=== PATIENT | female | born 1945 | race Caucasian/White ===

== ENCOUNTER → 2016-08-23 | Day surgery (SDC) | payer MEDICARE, BC ==
[~2016-08-23] MED LIST: Dexamethasone 4 MG/ML SDV ONE; Lactated Ringers 1,000 ML IV SCH; Neostigmine Methylsulfate 1 MG/ML 5 ML Syringe ONE; Ondansetron 4 MG/2 ML SDV ONE; Propofol 200 MG/20 ML SDV ONE; Rocuronium 50 MG/5 ML Vial ONE; Succinylcholine/Normal Saline 200 MG/10 ML Syringe ONE; ceFAZolin 2 GM in Premix Bag 1 BAG IV ONE; fentaNYL 250 MCG/5 ML SDV ONE
[2016-08-23 07:44] VITALS: BP 141/78
== END ==
LOC: JP.SDS 07:12
PROVIDERS: ATTEND Orthopaedic Surgery
DX: Z53.9 Procedure and treatment not carried out, unspecified reason (principal); M48.06 Spinal stenosis, lumbar region; M41.9 Scoliosis, unspecified; Z79.899 Other long term (current) drug therapy; Z87.891 Personal history of nicotine dependence
CPT/HCPCS: 36415; J7120; J1100; J2405; J2704; J3010

== ENCOUNTER 2016-08-30 08:08 | Inpatient (IN) | payer MEDICARE, BC ==
[~2016-08-30 08:08] MED LIST changes: -Lactated Ringers 1,000 ML IV SCH; +Lactated Ringers 1,000 ML ONE; +Scopolamine 1.5 MG Transdermal Patch ONE; -ceFAZolin 2 GM in Premix Bag 1 BAG IV ONE
[2016-08-30] MEDS ORDERED: Povidone-Iodine 10% Soln 118.25 ML Bottle ONE (08:17)
[2016-08-30] MEDS ORDERED: Thrombin (Bovine) 5,000 Unit Kit ONE (08:17)
[2016-08-30] MEDS ORDERED: Bupivacaine 0.5%/EPINEPHrine 1:200,000 50 ML MDV ONE (08:17)
[2016-08-30] MEDS ORDERED: ceFAZolin 2 GM in Premix Bag 1 BAG IV ONE (08:50)
[2016-08-30] MEDS ORDERED: Lactated Ringers 1,000 ML IV SCH (09:15)
[2016-08-30] MEDS ORDERED: Albuterol/Ipratropium 3.0-0.5 MG/3 ML Neb Soln NEB ONE (09:30)
[2016-08-30] MEDS ORDERED: Meropenem 500 MG SDV ONE (09:44)
[2016-08-30] MEDS ORDERED: Naloxone 0.4 MG/ML SDV IVPUSH PRN (09:46)
[2016-08-30] MEDS ORDERED: HYDROmorphone/Normal Saline 15 MG/30 ML PCA IV PRN (09:46)
[2016-08-30] MEDS ORDERED: Linezolid 200 MG/100 ML Bag IRR ONE ×3 (10:40→13:44)
[2016-08-30] MEDS ORDERED: Rocuronium 50 MG/5 ML Vial ONE (11:06)
[2016-08-30] MEDS ORDERED: fentaNYL 250 MCG/5 ML SDV ONE ×2 (11:07→13:01)
[2016-08-30] MEDS ORDERED: Lactated Ringers 1,000 ML ONE (11:37)
[2016-08-30] MEDS ORDERED: ceFAZolin 1 GM Vial ONE (12:27)
[2016-08-30] MEDS ORDERED: Acetaminophen 1,000 MG in Premix Bag 1 BAG IV ONE (14:20)
[2016-08-30] MEDS ORDERED: Sodium Chloride 0.9% 10 ML Syringe FLUSH PRN ×2 (14:54→15:03)
[2016-08-30] MEDS ORDERED: Ondansetron 4 MG/2 ML SDV ONE (15:52)
[2016-08-30] MEDS ORDERED: Ondansetron 4 MG/2 ML SDV IV PRN (15:53)
[2016-08-30] MEDS: Dextrose 5%-Lactated Ringers 1,000 ML IV SCH ×2 (16:05→23:05)
[2016-08-30] MEDS: Pantoprazole 40 MG Vial IV SCH (17:21)
[2016-08-30] MEDS: ceFAZolin 2 GM in Sodium Chloride 0.9% 50 ML IV SCH (17:29)
[2016-08-30] MEDS ORDERED: Meperidine 300 MG/30 ML PCA Vial IV PRN (18:40)
[2016-08-30] MEDS ORDERED: Naloxone 0.4 MG/ML SDV IV PRN (18:40)
[2016-08-30] MEDS: Metoclopramide 10 MG/2 ML SDV IV SCH (18:40)
[2016-08-30] MEDS: Acetaminophen 1,000 MG in Premix Bag 1 BAG IV SCH (20:17)
[2016-08-30] MEDS: Docusate Sodium 100 MG Cap PO SCH (20:52)
[2016-08-30] MEDS: Amitriptyline 10 MG Tab PO SCH (20:52)
[2016-08-30] MEDS ORDERED: Lactated Ringers 500 ML IV ONE (22:45)
[2016-08-30] MEDS ORDERED: diphenhydrAMINE 50 MG/ML SDV IVPUSH PRN (23:49)
[2016-08-31] MEDS: Metoclopramide 10 MG/2 ML SDV IV SCH ×4 (00:51→17:34)
[2016-08-31] MEDS: ceFAZolin 2 GM in Sodium Chloride 0.9% 50 ML IV SCH ×3 (00:51→17:47)
[2016-08-31] MEDS: Acetaminophen 1,000 MG in Premix Bag 1 BAG IV SCH ×2 (01:52→09:51)
[2016-08-31] MEDS: Dextrose 5%-Lactated Ringers 1,000 ML IV SCH ×2 (05:39→13:34)
--- NOTE | 2016-08-31 08:11 | OR ---
DATE OF PROCEDURE: 08/30/2016 PREOPERATIVE DIAGNOSES: 1. Lumbar stenosis, L4-5 and L5-S1. 2. Lumbar scoliosis, L3-4, L4-5, and L5-S1. CO-SURGEON: Franco Garg M.D. [employer]OUNTAIN CLERK: KEIRA Barnett. ANESTHESIA: General endotracheal intubation. FLUID: Lactated Ringer solution. ESTIMATED BLOOD LOSS: Please see Dr. Garg's chart. COMPLICATIONS: None. SPECIMEN: None. DISCHARGE DISPOSITION: Stable to PACU. IMPLANTS: Signify allograft with globus implants 25 x 31, 15-degree 16 to 19 mm implant at L5-S1 and 25 x 31, 8-degree 12 to 15 mm implant at L4-5. HISTORY AND INDICATIONS FOR THE PROCEDURE: The patient was seen preoperatively in the clinic. She had previously undergone a lumbar laminectomy. She was doing considerably worse after the procedure and was continuing to do worse. She noticed that she had an increased deformity, where she nearly had a rib on hip deformity, and it was causing her a great deal of pain. She was also having left lower extremity radiculopathies, consistent with the L4 nerve distribution, as well as the L5 nerve distribution. Preoperative imaging confirmed the above-mentioned diagnosis, and it was evident from recon images for the CT that the wide facetectomy contributed to her instability on the left, causing an apex right scoliosis. Risks and benefits of the procedure were explained to the patient. Informed consent was obtained. DETAILS OF PROCEDURE: The patient was seen preoperatively by myself, and anesthesia staff in the preoperative holding area, where the operative site was marked. She was brought to the operative suite by the anesthesia staff, where general anesthesia was administered. Neuro monitoring leads were placed. These were normal throughout the entire case. The patient was then prepped and draped in a sterile manner. Please see Dr. Jamel Garg's notes for exposure for the case. After L5 was appropriately exposed, we then used Bovie electrocautery to define the edges of the vertebral bodies at L5 and S1 through the L5-S1 intervertebral space. I then used a #10 blade and cut as close as I could to the vertebral procedure bodies, and then using a very flat Brown, went along the edges of the vertebral bodies to remove as much of the disk en bloc as possible. After I removed this with pituitaries, I used straight angled, as well as ring curettes to remove any extra disk. I was able to visualize the posterior longitudinal ligament. After this had been done, I trialed from 11 mm up to 15 mm. I confirmed good position on lateral fluoroscopy with the sterilely draped fluoroscopy unit. I then removed this material and then inserted the implant that already had the bioactive crunch present in it. I confirmed good placement on lateral fluoroscopy and then used awl holes for the screws and then placed a 120 mm screw and two 25 mm screws. We then took AP and lateral views of this implant. Dr. Garg then was able to expose the L4-5 interspace. We did have not as much exposure on the right, but in this instance, this worked out well because we needed to increase our interbody height primarily at L4-5 on the left, due to the scoliotic defect secondary to the facetectomy posteriorly. The trials were then inserted again up to 12 and then after disk preparation in a similar manner as the L5-S1 interval and then inserted our final implant. Please note that I was able to expand both of these implants under direct fluoroscopy and then I placed my screws in the second implant. After looking at the AP and lateral fluoro images, I decided that as much of the scoliosis as needed to be corrected, had been corrected and decided not to do the L3-4 level, as I had previously planned. Please see Dr. Garg's note for closure. The patient was allowed to awaken from general anesthesia, and taken to the PACU in stable condition. Geoff Garg DO /[id number]
[2016-08-31] MEDS ORDERED: Docusate Sodium 100 MG Cap PO SCH (09:00)
[2016-08-31] MEDS: Acetaminophen/oxyCODONE 325-5 MG Tab PO PRN ×3 (09:52→22:50)
[2016-08-31] MEDS: Docusate Sodium 100 MG Cap PO SCH ×2 (09:55→20:47)
[2016-08-31] MEDS: Aspirin 81 MG Tab.EC PO SCH (09:56)
[2016-08-31] MEDS: Enoxaparin 40 MG/0.4 ML Syringe SUBCUT SCH (11:23)
--- NOTE | 2016-08-31 11:29 | CR ---
Lumbar Spine 2 or 3V INDICATION: post op FINDINGS: 5 lumbar type vertebral bodies. Mild lumbar curve convex left. Postoperative changes inter body spacers at L4-5 and L5-S1. Mild degenerative disc space narrowing at the L1, L2, and L3 intersp aces.
[2016-08-31] MEDS ORDERED: Benzocaine/Cetylpyridinium/Menthol Lozenge MUCMEM PRN (12:21)
[2016-08-31] MEDS: Pantoprazole 40 MG Vial IV SCH (17:34)
[2016-08-31] MEDS: Amitriptyline 10 MG Tab PO SCH (22:51)
--- NOTE | 2016-08-31 23:02 | PN ---
DATE OF SERVICE: 08/31/2016 SUBJECTIVE: Michelle is postop day one. She has been up and ambulated twice. Vital signs have been stable. Temp max of 98.6. She reports pain is controlled. Oral intake was 0. Urinary output was 777. FOX drain put out 10 mL of a light pink serous drainage. REVIEW OF SYSTEMS: Remainder of review of systems negative for any pertinent positives and negatives. OBJECTIVE: GENERAL: Michelle Loyd is a 71-year-old female. She is laying comfortably in bed. VITAL SIGNS: TPR is 97.5, 82, 18. Blood pressure 147/85. O2 by pulse oximetry is 98%. HEENT: Negative. NECK: Supple. HEART: Regular rate and rhythm. LUNGS: Clear. ABDOMEN: Dressings dry and intact. Abdominal binder is on. FOX drain intact. EXTREMITIES: Negative. ASSESSMENT: Anterior lumbar fusion of L3, L4, L5, and S1. PLAN: 1. Discontinue PLASTICATOR and continue pulse ox. Percocet 5/325 mg 1 to 2 every 4 hours p.r.n. pain. 2. Regular diet. 3. Discontinue Villalba, decrease IV to 100 mL per hour, discontinue IV Tylenol and Colace 100 mg b.i.d. 4. Good pulmonary toilet encouraged. 5. We will evaluate p.r.n. or in a.m. Janel Hoffman PA-C /[id number]
[2016-09-01] MEDS: Dextrose 5%-Lactated Ringers 1,000 ML IV SCH (00:27)
[2016-09-01] MEDS: Metoclopramide 10 MG/2 ML SDV IV SCH ×3 (00:29→12:35)
[2016-09-01] MEDS: ceFAZolin 2 GM in Sodium Chloride 0.9% 50 ML IV SCH ×2 (01:34→10:09)
[2016-09-01] MEDS: Acetaminophen/oxyCODONE 325-5 MG Tab PO PRN ×3 (04:33→14:14)
--- NOTE | 2016-09-01 08:56 | PCM.PN ---
- General Info Date of Service: 08/31/16 Admission Dx/Problem (Free Text): Michelle is a 71 year old female who is POD 1. She had an anterior approach lumbar fusion of L3-L4, L4-L5. She is doing well. She is doing well with PT/OT. Pain is under control with medication. Functional Status: Reports: pain controlled, tolerating diet, ambulating - Review of Systems General: Reports: No Symptoms Musculoskeletal: Reports: back pain - Patient Data Vitals - most recent: Last Vital Signs Temp 36.9 C 09/01/16 06:58 Pulse 79 09/01/16 06:58 Resp 16 09/01/16 06:58 BP 128/67 09/01/16 06:58 Pulse Ox 95 09/01/16 06:58 Weight - most recent: 179 lb I&O - last 24 hours: Intake & Output 08/31/16 09/01/16 09/01/16 22:59 06:59 14:59 Intake Total 193 2771 Output Total 10 Balance 193 2761 Lab Results last 24 hrs: Laboratory Results - last 24 hr 09/01/16 09/01/16 Range/Units 05:00 05:00 WBC 10.7 (4.5-11.0) K/uL RBC 3.83 (3.30-5.50) M/uL Hgb 11.4 L (12.0-15.0) g/dL Hct 35.7 L (36.0-48.0) % MCV 93 (80-98) fL MCH 30 (27-31) pg MCHC 32 (32-36) % Plt Count 160 (150-400) K/uL Neut % (Auto) 73 H (36-66) % Lymph % (Auto) 15 L (24-44) % [place] % (Auto) 11 H (2-6) % Eos % (Auto) 1 L (2-4) % Baso % (Auto) 0 (0-1) % Sodium 145 (140-148) mmol/L Potassium 3.8 (3.6-5.2) mmol/L Chloride 108 (100-108) mmol/L Carbon Dioxide 29 (21-32) mmol/L Anion Gap 7.7 (5.0-14.0) mmol/L BUN 18 (7-18) mg/dL Creatinine 0.8 (0.6-1.0) mg/dL Est Cr Clr Drug Dosing 51.81 mL/min Estimated GFR (MDRD) > 60 (>60) Glucose 124 H (74-106) mg/dL Calcium 7.8 L (8.5-10.1) mg/dL Med Orders - Current: Current Medications Amitriptyline HCl (Elavil) 10 mg PO BEDTIME [facility] Last Admin: 08/31/16 22:51 Dose: 10 mg Aspirin (Halfprin) 81 mg PO DAILY [facility] Last Admin: 08/31/16 09:56 Dose: 81 mg Benzocaine/Menthol (Cepacol Sore Throat) 1 lozenge MUCMEM Q1H PRN PRN Reason: Cough Last Admin: 08/31/16 17:34 Dose: 1 drop Diphenhydramine HCl (Benadryl) 25 - 50 mg IVPUSH Q4H PRN PRN Reason: Itching Docusate Sodium (Colace) 100 mg PO BID [facility] Last Admin: 08/31/16 20:47 Dose: 100 mg Enoxaparin Sodium (Lovenox) 40 mg SUBCUT DAILY [facility] Last Admin: 08/31/16 11:23 Dose: 40 mg Dextrose/Lactated Ringer's (Dextrose 5%-Lactated Ringers) 1,000 mls @ 100 mls/ hr IV ASDIRECTED [facility] Last Admin: 09/01/16 00:27 Dose: 100 mls/hr Cefazolin Sodium 2 gm/ Sodium (Chloride) 50 mls @ 100 mls/hr IV Q8H [facility] Last Admin: 09/01/16 01:34 Dose: 100 mls/hr Metoclopramide HCl (Reglan) 10 mg IV Q6H [facility] Last Admin: 09/01/16 05:58 Dose: 10 mg Naloxone HCl (Narcan) 0.1 mg IV ASDIRECTED PRN PRN Reason: Respiratory Depression Ondansetron HCl (Zofran) 4 mg IV Q4H PRN PRN Reason: N/V Last Admin: 08/30/16 15:53 Dose: 4 mg Oxycodone/Acetaminophen (Percocet 325-5 Mg) 1 - 2 tab PO Q4H PRN PRN Reason: PAIN Last Admin: 09/01/16 04:33 Dose: 1 tab Pantoprazole Sodium (Protonix Iv) 40 mg IV Q24H [facility] Last Admin: 08/31/16 17:34 Dose: 40 mg Sodium Chloride (Saline Flush) 10 ml FLUSH ASDIRECTED PRN PRN Reason: Keep Vein Open Discontinued Medications Albuterol/Ipratropium (Duoneb 3.0-0.5 Mg/3 Ml) 3 ml NEB ONETIME ONE Stop: 08/30/16 09:31 Last Admin: 08/30/16 09:18 Dose: 3 ml Bupivacaine HCl/Epinephrine Bitart (Marcaine 0.5%/Epinephrine 1:200,000) Confirm Administered Dose 50 ml .ROUTE .STK-MED ONE Stop: 08/30/16 08:18 Cefazolin Sodium (Ancef) Confirm Administered Dose 2 gm .ROUTE .STK-MED ONE Stop: 08/30/16 12:28 Dexamethasone (Dexamethasone) Confirm Administered Dose 4 mg .ROUTE .STK-MED ONE Stop: 08/30/16 08:03 Docusate Sodium (Colace) 100 mg PO BID [facility] Last Admin: 08/31/16 09:55 Dose: Not Given Fentanyl (Sublimaze) Confirm Administered Dose 500 mcg .ROUTE .STK-MED ONE Stop: 08/30/16 08:04 Fentanyl (Sublimaze) Confirm Administered Dose 250 mcg .ROUTE .STK-MED ONE Stop: 08/30/16 11:08 Fentanyl (Sublimaze) Confirm Administered Dose 250 mcg .ROUTE .STK-MED ONE Stop: 08/30/16 13:02 Glycopyrrolate () Confirm Administered Dose 1 mg .ROUTE .STK-MED ONE Stop: 08/30/16 08:03 Hydromorphone HCl (Dilaudid [facility] 15 Mg In Ns 30 Ml) 0 mg IV ASDIRECTED PRN; Protocol PRN Reason: Pain Last Admin: 08/30/16 09:54 Dose: 0.3 mg Lactated Ringer's (Ringers, Lactated) 1,000 mls @ 0 mls/hr IV ASDIRECTED [facility] PRN Reason: KVO Last Admin: 08/30/16 09:04 Dose: 25 mls/hr Lactated Ringer's (Ringers, Lactated) Confirm Administered Dose 1,000 mls @ as directed .ROUTE .STK-MED ONE Stop: 08/30/16 08:03 Cefazolin Sodium/Dextrose 2 gm (/ Premix) 50 mls @ 100 mls/hr IV ONETIME ONE Stop: 08/30/16 09:19 Last Admin: 08/30/16 09:20 Dose: 100 mls/hr Linezolid (Zyvox) Confirm Administered Dose 100 mls @ as directed .ROUTE .STK- MED ONE Stop: 08/30/16 09:46 Lactated Ringer's (Ringers, Lactated) Confirm Administered Dose 1,000 mls @ as directed .ROUTE .STK-MED ONE Stop: 08/30/16 11:38 Linezolid (Zyvox) Confirm Administered Dose 100 mls @ as directed .ROUTE .STK- MED ONE Stop: 08/30/16 12:22 Acetaminophen 1,000 mg/ Premix 100 mls @ 400 mls/hr IV NOW ONE Stop: 08/30/16 14:34 Last Admin: 08/30/16 14:19 Dose: 400 mls/hr Acetaminophen 1,000 mg/ Premix 100 mls @ 400 mls/hr IV Q6H [facility] Stop: 08/31/16 08:14 Last Admin: 08/31/16 09:51 Dose: Not Given Lactated Ringer's (Ringers, Lactated) 500 mls @ 500 mls/hr IV ONETIME ONE Stop: 08/30/16 23:44 Last Admin: 08/30/16 22:49 Dose: 500 mls/hr Linezolid (Zyvox) 200 mg IRR .STK-MED ONE Stop: 08/30/16 10:41 Last Admin: 08/30/16 10:40 Dose: 200 mg Linezolid (Zyvox) 200 mg IRR .STK-MED ONE Stop: 08/30/16 12:26 Last Admin: 08/30/16 12:25 Dose: 200 mg Linezolid (Zyvox) 200 mg IRR .STK-MED ONE Stop: 08/30/16 13:45 Last Admin: 08/30/16 13:44 Dose: 200 mg Meperidine HCl (Demerol [facility] 300 Mg In 30 Ml) 0 mg IV ASDIRECTED PRN; Protocol PRN Reason: PAIN Last Admin: 08/30/16 19:03 Dose: 300 mg Meropenem (Merrem) Confirm Administered Dose 500 mg .ROUTE .STK-MED ONE Stop: 08/30/16 09:45 Last Admin: 08/30/16 10:40 Dose: 500 mg Naloxone HCl (Narcan) 0.1 mg IVPUSH Q2M PRN PRN Reason: Respiratory Distress Neostigmine Methylsulfate (Neostigmine) Confirm Administered Dose 5 mg .ROUTE .STK-MED ONE Stop: 08/30/16 08:03 Ondansetron HCl (Zofran) Confirm Administered Dose 4 mg .ROUTE .STK-MED ONE Stop: 08/30/16 08:03 Ondansetron HCl (Zofran) Confirm Administered Dose 4 mg .ROUTE .STK-MED ONE Stop: 08/30/16 15:53 Last Admin: 08/30/16 16:32 Dose: Not Given Povidone Iodine (Betadine 10% Soln) Confirm Administered Dose 1 ml .ROUTE .STK- MED ONE Stop: 08/30/16 08:18 Propofol (Diprivan 20 Ml) Confirm Administered Dose 200 mg .ROUTE .STK-MED ONE Stop: 08/30/16 08:03 Rocuronium [place] (Zemuron) Confirm Administered Dose 100 mg .ROUTE .STK-MED ONE Stop: 08/30/16 08:03 Rocuronium [place] (Zemuron) Confirm Administered Dose 50 mg .ROUTE .STK-MED ONE Stop: 08/30/16 11:07 Scopolamine (Transderm-Scop) Confirm Administered Dose 1.5 mg .ROUTE .STK-MED ONE Stop: 08/30/16 08:03 Sodium Chloride (Saline Flush) 10 ml FLUSH ASDIRECTED PRN PRN Reason: Keep Vein Open Succinylcholine Chloride (Succinylcholine In Ns Pf) Confirm Administered Dose 200 mg .ROUTE .STK-MED ONE Stop: 08/30/16 08:03 Thrombin (Thrombin-Jmi) Confirm Administered Dose 10,000 unit .ROUTE .STK-MED ONE Stop: 08/30/16 08:18 Last Admin: 08/30/16 10:39 Dose: 5,000 unit - Exam General: alert, oriented Abdomen: soft Back Exam: normal inspection Extremities: no edema Skin: warm, dry, intact Wound/Incisions: healing well, dressing dry and intact, no drainage Psy/Mental Status: alert - Problem List & Annotations (1) Status post lumbar spinal fusion SNOMED Code(s): 279666651, 087794229, 898699451 Code(s): Z98.1 - ARTHRODESIS STATUS Status: Acute Current Visit: Yes Annotation/Comment:: L3-L4, L4-L5-, L5-S1 - Problem List Review Problem List Initiated/Reviewed/Updated: Yes - My Orders Last 24 Hours: My Active Orders 09/02/16 05:15 BASIC METABOLIC PANEL,BMP [CHEM] DAILY CBC WITH AUTO DIFF [HEME] DAILY 09/03/16 05:15 BASIC METABOLIC PANEL,BMP [CHEM] DAILY CBC WITH AUTO DIFF [HEME] DAILY - Assessment Assessment:: SPINE Musculoskeletal Physical Examination Constitutional: Vital signs including height and weight were reviewed and documented on the patient's chart. General appearance demonstrates normal development and body habitus. HEENT: Normocephalic, atraumatic. Neurological: The patient is alert and oriented to person, place, and time. Mood and affect are appropriate. Gait and station are normal. Intact sensation is noted. Deep tendon reflexes are equal. Clonus negative. Young' s negative. Coordination and balance are normal. Neck: Inspection/palpation: Normal symmetry and appearance without tenderness. Range of motion: Full range of motion without pain. Stability: Stable through range of motion. Strength: Normal muscle strength and tone. Skin: Normal skin tone without rashes or lesions. Lumbar Spine: Inspection/palpation: Normal symmetry and appearance without tenderness. Range of motion: Full range of motion without pain. Stability: Stable through range of motion. Strength: Normal muscle strength and tone. Skin: Normal skin tone without rashes or lesions. Right upper extremity: Inspection/palpation: Normal symmetry and appearance without tenderness. Range of motion: Full range of motion without pain. Stability: Stable through range of motion. Strength: Normal muscle strength and tone. Skin: Normal skin tone without rashes or lesions. Left upper extremity: Inspection/palpation: Normal symmetry and appearance without tenderness. Range of motion: Full range of motion without pain. Stability: Stable through range of motion. Strength: Normal muscle strength and tone. Skin: Normal skin tone without rashes or lesions. Right lower extremity: Inspection/palpation: Normal symmetry and appearance without tenderness. Range of motion: Full range of motion without pain. Stability: Stable through range of motion. Strength: Normal muscle strength and tone. Skin: Normal skin tone without rashes or lesions. Left lower extremity: Inspection/palpation: Normal symmetry and appearance without tenderness. Range of motion: Full range of motion without pain. Stability: Stable through range of motion. Strength: Normal muscle strength and tone. Skin: Normal skin tone without rashes or lesions. - Plan Plan:: At this time I want her to continue with pain management. She is to work with PT /OT for improvement with mobilization. General surgery will also address her abdominal wound. Plan is for her to be discharged tomorrow.
[2016-09-01] MEDS: Docusate Sodium 100 MG Cap PO SCH (10:06)
[2016-09-01] MEDS: Enoxaparin 40 MG/0.4 ML Syringe SUBCUT SCH (10:06)
[2016-09-01] MEDS: Aspirin 81 MG Tab.EC PO SCH (10:06)
[2016-09-01 11:01] VITALS: BP 134/77
--- NOTE | 2016-09-01 13:59 | PCM.DCSUM1 ---
Discharge Summary - Hospital Course Free Text/Narrative:: Michelle is a 71-year-old female whom is status post 2 days from an anterior lumbar fusion of L3-L4, L4-L5. She is doing very well. Her pain is under control at this time. She is ambulating with no difficulties. She is wanting to go home at this time. at this time I feel patient is ready to go home. I did consult with general surgery may also agree that she is to go home. We will see her back in 4 weeks. Gen. surgery we'll see her back in 10 days. She is to continue to wear the brace daily. She is to change dressings daily. She is now ferrous with any other issues. HPI Initial Comments: Admission Diagnosis/Problem Admission Diagnosis/Problem Fusion of posterior lumbar spine - Discharge Data Discharge Date: 09/01/16 Discharge Disposition: Home, W Home Health Agency 06 Condition: Good - Discharge Diagnosis/Problem(s) (1) Status post lumbar spinal fusion SNOMED Code(s): 513091792, [id number], [id number] ICD Code: Z98.1 - ARTHRODESIS STATUS Status: Acute Current Visit: Yes Problem Details: L3-L4, L4-L5-, L5-S1 - Patient Summary/Data Consults: Consultations 08/30/16 14:54 OT Evaluation and Treatment [CONS] Routine Please Evaluate and Treat. OT Reason for Consult: Strengthening This query below is only for informational purposes and is not editable. PT Evaluation and Treatment [CONS] Routine Please Evaluate and Treat. PT Reason for Consult: Strengthening This query below is only for informational purposes and is not editable. - Patient Instructions Diet: Regular Diet as Tolerated, Drink 8-10+ Glasses/Day Activity, Other: As directed by Dr. Umer Garg Showering/Bathing: May Shower Notify Provider of: Fever, Increased Pain, Nausea and/or Vomiting Other/Special Instructions: Use Incentive Inspirometer 10 times in a row every hour while awake for 2 weeks. - Discharge Plan Prescriptions/Med Rec: Acetaminophen/oxyCODONE [Percocet 325-5 MG] 1 - 2 tab PO Q4H PRN #50 tablet PRN Reason: Pain Docusate Sodium [Colace] 100 mg PO BID #100 cap Home Medications: Home Meds Acetaminophen [Tylenol] 2 tab PO Q4H PRN 06/15/16 [History] Alum Hydrox/Mag Hydrox/Simeth [Maalox Advanced] 30 ml PO ASDIRECTED PRN [History] Bisacodyl [Dulcolax] 1 cap PO BID PRN 06/15/16 [History] Calcium Carbonate/Vitamin D3 [Calcium 600 + Vit D Tablet] 1 each PO DAILY [History] Docusate Sodium [Colace] 100 mg PO BID 06/15/16 [History] Magnesium Hydroxide [Milk of Magnesia] 30 ml PO DAILY PRN 06/15/16 [History] Vit A/Vit C/Vit E/Zinc/Copper [Preservision Areds Softgel] 1 tab PO BID [History] Amitriptyline [Elavil] 10 mg PO BEDTIME 06/16/16 [History] Aspirin 81 mg PO DAILY 06/16/16 [History] Ibuprofen 400 mg PO Q6H PRN 08/19/16 [History] Acetaminophen/oxyCODONE [Percocet 325-5 MG] 1 - 2 tab PO Q4H PRN #50 tablet [Rx] Docusate Sodium [Colace] 100 mg PO BID #100 cap 09/01/16 [Rx] Referrals: Janel Hoffman PA-C [Physician Potato Picker] - 09/09/16 10:00 am Geoff Garg DO [Physician] - (Follow up in 3 weeks ) - General Info Functional Status: Reports: pain controlled, tolerating diet, ambulating, urinating - Review of Systems General: Reports: No Symptoms Genitourinary: Reports: no symptoms Musculoskeletal: Reports: no symptoms Skin: Reports: no symptoms Neurological: Reports: No Symptoms Psychiatric: Reports: no symptoms - Patient Data Vitals - Most Recent: Last Vital Signs Temp 37.1 C 09/01/16 10:58 Pulse 85 09/01/16 10:58 Resp 16 09/01/16 10:58 BP 134/77 09/01/16 10:58 Pulse Ox 95 09/01/16 10:58 Weight - Most Recent: 179 lb I&O - Last 24 hours: Intake & Output 08/31/16 09/01/16 09/01/16 22:59 06:59 14:59 Intake Total 1932 2771 480 Output Total 10 650 Balance 1931 3911 -170 Lab Results - Last 24 hrs: Laboratory Results - last 24 hr 09/01/16 09/01/16 Range/Units 05:00 05:00 WBC 10.7 (4.5-11.0) K/uL RBC 3.83 (3.30-5.50) M/uL Hgb 11.4 L (12.0-15.0) g/dL Hct 35.7 L (36.0-48.0) % MCV 93 (80-98) fL MCH 30 (27-31) pg MCHC 32 (32-36) % Plt Count 160 (150-400) K/uL Neut % (Auto) 73 H (36-66) % Lymph % (Auto) 15 L (24-44) % [place] % (Auto) 11 H (2-6) % Eos % (Auto) 1 L (2-4) % Baso % (Auto) 0 (0-1) % Sodium 145 (140-148) mmol/L Potassium 3.8 (3.6-5.2) mmol/L Chloride 108 (100-108) mmol/L Carbon Dioxide 29 (21-32) mmol/L Anion Gap 7.7 (5.0-14.0) mmol/L BUN 18 (7-18) mg/dL Creatinine 0.8 (0.6-1.0) mg/dL Est Cr Clr Drug Dosing 51.81 mL/min Estimated GFR (MDRD) > 60 (>60) Glucose 124 H (74-106) mg/dL Calcium 7.8 L (8.5-10.1) mg/dL Med Orders - Current: Current Medications Amitriptyline HCl (Elavil) [address] [facility] Last Admin: 08/31/16 22:51 Dose: 10 mg Aspirin (Halfprin) [address] [facility] Last Admin: 09/01/16 10:06 Dose: 81 mg Benzocaine/Menthol (Cepacol Sore Throat) 1 lozenge MUCMEM Q1H PRN PRN Reason: Cough Last Admin: 08/31/16 17:34 Dose: 1 drop Diphenhydramine HCl (Benadryl) 25 - 50 mg IVPUSH Q4H PRN PRN Reason: Itching Docusate Sodium (Colace) [address] [facility] Last Admin: 09/01/16 10:06 Dose: 100 mg Enoxaparin Sodium (Lovenox) [address] [facility] Last Admin: 09/01/16 10:06 Dose: 40 mg Dextrose/Lactated Ringer's (Dextrose 5%-Lactated Ringers) 1,000 mls @ 100 mls/ hr IV ASDIRECTED [facility] Last Admin: 09/01/16 00:27 Dose: 100 mls/hr Cefazolin Sodium 2 gm/ Sodium (Chloride) 50 mls @ 100 mls/hr IV Q8H [facility] Last Admin: 09/01/16 10:09 Dose: 100 mls/hr Metoclopramide HCl (Reglan) [address] [facility] Last Admin: 09/01/16 12:35 Dose: Not Given Naloxone HCl (Narcan) 0.1 mg IV ASDIRECTED PRN PRN Reason: Respiratory Depression Ondansetron HCl (Zofran) 4 mg IV Q4H PRN PRN Reason: N/V Last Admin: 08/30/16 15:53 Dose: 4 mg Oxycodone/Acetaminophen (Percocet 325-5 Mg) 1 - 2 tab PO Q4H PRN PRN Reason: PAIN Last Admin: 09/01/16 04:33 Dose: 1 tab Pantoprazole Sodium (Protonix Iv) [address] [facility] Last Admin: 08/31/16 17:34 Dose: 40 mg Sodium Chloride (Saline Flush) 10 ml FLUSH ASDIRECTED PRN PRN Reason: Keep Vein Open Discontinued Medications Albuterol/Ipratropium (Duoneb 3.0-0.5 Mg/3 Ml) 3 ml NEB ONETIME ONE Stop: 08/30/16 09:31 Last Admin: 08/30/16 09:18 Dose: 3 ml Bupivacaine HCl/Epinephrine Bitart (Marcaine 0.5%/Epinephrine 1:200,000) Confirm Administered Dose 50 ml .ROUTE .STK-MED ONE Stop: 08/30/16 08:18 Cefazolin Sodium (Ancef) Confirm Administered Dose 2 gm .ROUTE .STK-MED ONE Stop: 08/30/16 12:28 Dexamethasone (Dexamethasone) Confirm Administered Dose 4 mg .ROUTE .STK-MED ONE Stop: 08/30/16 08:03 Docusate Sodium (Colace) [address] [facility] Last Admin: 08/31/16 09:55 Dose: Not Given Fentanyl (Sublimaze) Confirm Administered Dose 500 mcg .ROUTE .STK-MED ONE Stop: 08/30/16 08:04 Fentanyl (Sublimaze) Confirm Administered Dose 250 mcg .ROUTE .STK-MED ONE Stop: 08/30/16 11:08 Fentanyl (Sublimaze) Confirm Administered Dose 250 mcg .ROUTE .STK-MED ONE Stop: 08/30/16 13:02 Glycopyrrolate () Confirm Administered Dose 1 mg .ROUTE .STK-MED ONE Stop: 08/30/16 08:03 Hydromorphone HCl (Dilaudid Warehouse Specialist 15 Mg In Ns 30 Ml) 0 mg IV ASDIRECTED PRN; Protocol PRN Reason: Pain Last Admin: 08/30/16 09:54 Dose: 0.3 mg Lactated Ringer's (Ringers, Lactated) 1,000 mls @ 0 mls/hr IV ASDIRECTED [facility] PRN Reason: KVO Last Admin: 08/30/16 09:04 Dose: 25 mls/hr Lactated Ringer's (Ringers, Lactated) Confirm Administered Dose 1,000 mls @ as directed .ROUTE .STK-MED ONE Stop: 08/30/16 08:03 Cefazolin Sodium/Dextrose 2 gm (/ Premix) 50 mls @ 100 mls/hr IV ONETIME ONE Stop: 08/30/16 09:19 Last Admin: 08/30/16 09:20 Dose: 100 mls/hr Linezolid (Zyvox) Confirm Administered Dose 100 mls @ as directed .ROUTE .STK- MED ONE Stop: 08/30/16 09:46 Lactated Ringer's (Ringers, Lactated) Confirm Administered Dose 1,000 mls @ as directed .ROUTE .STK-MED ONE Stop: 08/30/16 11:38 Linezolid (Zyvox) Confirm Administered Dose 100 mls @ as directed .ROUTE .STK- MED ONE Stop: 08/30/16 12:22 Acetaminophen 1,000 mg/ Premix 100 mls @ 400 mls/hr IV NOW ONE Stop: 08/30/16 14:34 Last Admin: 08/30/16 14:19 Dose: 400 mls/hr Acetaminophen 1,000 mg/ Premix 100 mls @ 400 mls/hr IV Q6H [facility] Stop: 08/31/16 08:14 Last Admin: 08/31/16 09:51 Dose: Not Given Lactated Ringer's (Ringers, Lactated) 500 mls @ 500 mls/hr IV ONETIME ONE Stop: 08/30/16 23:44 Last Admin: 08/30/16 22:49 Dose: 500 mls/hr Linezolid (Zyvox) 200 mg IRR .STK-MED ONE Stop: 08/30/16 10:41 Last Admin: 08/30/16 10:40 Dose: 200 mg Linezolid (Zyvox) 200 mg IRR .STK-MED ONE Stop: 08/30/16 12:26 Last Admin: 08/30/16 12:25 Dose: 200 mg Linezolid (Zyvox) 200 mg IRR .STK-MED ONE Stop: 08/30/16 13:45 Last Admin: 08/30/16 13:44 Dose: 200 mg Meperidine HCl (Demerol Warehouse Specialist 300 Mg In 30 Ml) 0 mg IV ASDIRECTED PRN; Protocol PRN Reason: PAIN Last Admin: 08/30/16 19:03 Dose: 300 mg Meropenem (Merrem) Confirm Administered Dose 500 mg .ROUTE .STK-MED ONE Stop: 08/30/16 09:45 Last Admin: 08/30/16 10:40 Dose: 500 mg Naloxone HCl (Narcan) 0.1 mg IVPUSH Q2M PRN PRN Reason: Respiratory Distress Neostigmine Methylsulfate (Neostigmine) Confirm Administered Dose 5 mg .ROUTE .STK-MED ONE Stop: 08/30/16 08:03 Ondansetron HCl (Zofran) Confirm Administered Dose 4 mg .ROUTE .STK-MED ONE Stop: 08/30/16 08:03 Ondansetron HCl (Zofran) Confirm Administered Dose 4 mg .ROUTE .STK-MED ONE Stop: 08/30/16 15:53 Last Admin: 08/30/16 16:32 Dose: Not Given Povidone Iodine (Betadine 10% Soln) Confirm Administered Dose 1 ml .ROUTE .STK- MED ONE Stop: 08/30/16 08:18 Propofol (Diprivan 20 Ml) Confirm Administered Dose 200 mg .ROUTE .STK-MED ONE Stop: 08/30/16 08:03 Rocuronium Bath (Zemuron) Confirm Administered Dose 100 mg .ROUTE .STK-MED ONE Stop: 08/30/16 08:03 Rocuronium Bath (Zemuron) Confirm Administered Dose 50 mg .ROUTE .STK-MED ONE Stop: 08/30/16 11:07 Scopolamine (Transderm-Scop) Confirm Administered Dose 1.5 mg .ROUTE .STK-MED ONE Stop: 08/30/16 08:03 Sodium Chloride (Saline Flush) 10 ml FLUSH ASDIRECTED PRN PRN Reason: Keep Vein Open Succinylcholine Chloride (Succinylcholine In Ns Pf) Confirm Administered Dose 200 mg .ROUTE .STK-MED ONE Stop: 08/30/16 08:03 Thrombin (Thrombin-Jmi) Confirm Administered Dose 10,000 unit .ROUTE .STK-MED ONE Stop: 08/30/16 08:18 Last Admin: 08/30/16 10:39 Dose: 5,000 unit - Exam General: Reports: alert, oriented Physical Findings Comments:: SPINE Musculoskeletal Physical Examination Constitutional: Vital signs including height and weight were reviewed and documented on the patient's chart. General appearance demonstrates normal development and body habitus. HEENT: Normocephalic, atraumatic. Neurological: The patient is alert and oriented to person, place, and time. Mood and affect are appropriate. Gait and station are normal. Intact sensation is noted. Deep tendon reflexes are equal. Clonus negative. Young' s negative. Coordination and balance are normal. Neck: Inspection/palpation: Normal symmetry and appearance without tenderness. Range of motion: Full range of motion without pain. Stability: Stable through range of motion. Strength: Normal muscle strength and tone. Skin: Normal skin tone without rashes or lesions. Lumbar Spine: Inspection/palpation: Normal symmetry and appearance without tenderness. Range of motion: Full range of motion without pain. Stability: Stable through range of motion. Strength: Normal muscle strength and tone. Skin: Normal skin tone without rashes or lesions. Right upper extremity: Inspection/palpation: Normal symmetry and appearance without tenderness. Range of motion: Full range of motion without pain. Stability: Stable through range of motion. Strength: Normal muscle strength and tone. Skin: Normal skin tone without rashes or lesions. Left upper extremity: Inspection/palpation: Normal symmetry and appearance without tenderness. Range of motion: Full range of motion without pain. Stability: Stable through range of motion. Strength: Normal muscle strength and tone. Skin: Normal skin tone without rashes or lesions. Right lower extremity: Inspection/palpation: Normal symmetry and appearance without tenderness. Range of motion: Full range of motion without pain. Stability: Stable through range of motion. Strength: Normal muscle strength and tone. Skin: Normal skin tone without rashes or lesions. Left lower extremity: Inspection/palpation: Normal symmetry and appearance without tenderness. Range of motion: Full range of motion without pain. Stability: Stable through range of motion. Strength: Normal muscle strength and tone. Skin: Normal skin tone without rashes or lesions. *Q Meaningful Use (DIS) - VTE *Q VTE Criteria *Q: - Stroke *Q Stroke Criteria *Q: - AMI *Q AMI Criteria *Q:
--- NOTE | 2016-09-02 09:04 | PN ---
DATE OF SERVICE: 09/01/2016 SUBJECTIVE: Michelle will be discharged today. Her discharge orders will be written per Geoff Garg DO. Michelle states her pain is controlled. She has been up ambulating. Physical Therapy has been working with her. Her temp max was 99.1. Oral intake 980, output 850. FOX drain in her midline incision put out 10 mL. She did have a bowel movement 08/31/2016. REVIEW OF SYSTEMS: Remainder of review of systems negative for any pertinent positives and negatives. OBJECTIVE: GENERAL: Michelle Mendez is a 71-year-old female. She is sitting up in the chair. VITAL SIGNS: TPR is 98.4, 79, 16. Blood pressure 128/67. HEENT: Negative. NECK: Supple. HEART: Regular rate and rhythm. LUNGS: Clear. ABDOMEN: She has a brace around her mid trunk. Abdominal binder is on. FOX drain intact, draining scant amounts of light pink serous drainage. EXTREMITIES: Revealed trace peripheral edema. ASSESSMENT: Left parameter retroperitoneal exposure of L4-5 and L5-S1 for anterior lumbar interbody fusion. Date of surgery 08/30/2016. PLAN: 1. Michelle will be discharged to home with a followup appointment with Janel Hoffman PA-C, at [facility] on 09/09/2016 at 10:00 a.m. She will follow up with Umre Garg DO in 3 weeks. 2. Home medications: Percocet 5/325 mg 1 to 2 every 4 hours p.r.n. pain #50. Colace 100 mg oral twice daily. She is to resume her home medication prior to admission. 3. Diet after discharge: Regular diet as tolerated. Drink 8 to 10 glasses of water a day. 4. She may shower. Wear abdominal binder for 6 weeks and then as tolerated. Empty FOX drain 4 times a day. Use incentive spirometer 10 times in a row every hour while awake. Her physical activity and restrictions per her back surgery will be written per Umer Garg DO, in regard to discharge. Janel Hoffman PA-C /[id number]
--- NOTE | 2016-09-04 13:03 | OR ---
DATE OF PROCEDURE: 08/30/2016 PREOPERATIVE DIAGNOSIS: Lumbar spinal stenosis at L4-L5 and L5-S1 levels. POSTOPERATIVE DIAGNOSIS: Lumbar spinal stenosis at L4-L5 and L5-S1 levels. OPERATIVE PROCEDURE: Left anterior paramedian exposure of L4-L5 and L5-S1 for anterior lumbar interbody fusion ([id number], [id number]). ANESTHESIA: General. BANK CREDIT CARD COLLECTION CLERK: KEIRA Barnett. INDICATION FOR PROCEDURE: This is a 71-year-old, presenting with findings as per Dr. Geoff Garg's preoperative evaluation. The plan is to proceed with anterior lumbar interbody fusions at levels L3-4, L4-5, and L5-S1. Intraoperatively, it was determined after the L4-L5 fusion that had corrected things enough that the L3 and L4 level did not need to be addressed. The potential risks of procedure including bleeding, infection, injury to the viscera, ureter, or major vasculature including aorta, vena cava, and iliac vessels with the potential life-threatening bleeding were gone over as well as possible need for emergent revascularization should there be a vascular occlusion as a result of retraction of those vessels. DETAILS OF PROCEDURE: The patient was taken to the operating room and placed in a supine position. After general endotracheal anesthesia was induced, a Villalba catheter was inserted and neurologic monitoring leads were placed. The abdomen was then prepped and draped. A left paramedian incision was then made from just above the level of the inguinal ligament to the level of the umbilicus. This was carried down through the skin and then down to the level of the anterior rectus sheath. Subcutaneous flaps were then raised at that level. The anterior rectus sheath was then incised and the rectus muscle retracted laterally. The upper end of the incision of the arcuate line of Tim was divided as well and this then allowed retroperitoneal dissection going down initially to the left psoas muscle and then sweeping things medially to the point that the aorta, vena cava, and area of the bifurcation of those vessels was well identified. Care was taken to avoid injury to the ureter and the hypogastric sympathetic plexus inferior to the bifurcation was reflected off with the peritoneum. Attention was initially taken to the L5-S1 space. The middle sacral vessels were then both divided just below the bifurcation as were then the medial iliosacral vessels laterally. Then, the iliolumbar vein was identified and divided with Harmonic scalpel. The previous two vessel groups were likewise ligated with a Harmonic scalpel. The common iliac vessels were then identified and dissected off the vertebral body and retracted superiorly and leftward. There was also some gentle retraction of the right common iliac vessels. This allowed adequate exposure of the L5-S1 disk space. A needle was placed into that area and radiologic confirmation of the appropriate level was then undertaken. At this point, Dr. Geoff Garg performed a total diskectomy and anterior lumbar interbody fusion at that level and then upon completion of that, attention was taken by exposure of the L4-L5 level. After the retractors had been removed at the L5-S1 level, the aorta and proximal left iliac artery were retracted rightward. Two sets of segmental vessels were divided and this provided adequate exposure of the L4-L5 disk. At that point, Dr. Geoff Garg then did the diskectomy and anterior lumbar interbody fusion at the L4-L5 level. After radiologic examination of the status after the L4-L5 fusion had been completed, it was determined that the L3-L4 disk space did not need to be operatively dealt with today. At this point, the retractors were removed and the patient was confirmed to have a good pulse within the distal iliac vessels and the ureter was confirmed to be uninjured as well. Hemostasis was checked and appeared to be adequate. The wound was then irrigated with an antibiotic-containing saline solution consisting of meropenem and Zyvox. The anterior rectus sheaths were then closed with a running #2 Vicryl stitch. Subcutaneous tissue approximated with some 3-0 Vicryl stitch and the skin with erendira, and a dressing applied. Both feet were then also examined and the dorsalis pedis pulse was confirmed to be present and of the same general intensity as was noted preoperatively. The patient was taken to the recovery room in satisfactory condition. The anterior interbody fusion portion of the procedure will be dictated separately by Dr. Geoff Garg. Nurse practitioner, Hailey Julio played an essential role in assisting in this case, helping to position the patient, retract structures as needed, and as well as cutting sutures and placing erendira as indicated. Her presence improved the patient's safety and decreased the operative time. Franco Garg MD /[id number]
== END 2016-09-01 14:50 | disposition home health service (06) | DRG 460 ==
LOC: JP.SDS 08:08 → EDSTATUS 08:30 → JP.MS 08:30 → UNDOADMIN 14:55 → UNDODISIN 09-01 14:50
PROVIDERS: ADMIT Surgery; ATTEND Surgery
PROC: 0SG30K0 Fusion of Lumbosacral Joint with Nonautologous Tissue Substitute, Anterior Approach, Anterior Column, Open Approach (ICD-10-PCS; principal; 2016-08-30)
DX: M48.07 Spinal stenosis, lumbosacral region (principal); M43.26 Fusion of spine, lumbar region; M41.87 Other forms of scoliosis, lumbosacral region; M51.36 Other intervertebral disc degeneration, lumbar region; Z98.1 Arthrodesis status
CPT/HCPCS: 22558; 22585; 22842; 22853; 36415; 72100; 72100-26; 76001; 80048; 80053; 83735; 83880; 84100; 85025; 86850; 86900; 86901; 86920; 86922; 94762; 97110-GP; 97162-GP; 97165-GO; 97530-GP; 97535-GP; A9270-GY; C1713; C9113; J0131; J0690; J1100; J1170; J1650; J2020; J2175; J2185; J2405; J2704; J2765; J3010; J7042; J7050; J7120; J7620

== ENCOUNTER 2016-09-02 16:04 | Emergency (ER) | payer MEDICARE, BC ==
--- NOTE | 2016-09-02 18:30 | EDM.PDOC ---
ED HPI GENERAL MEDICAL PROBLEM - General Chief Complaint: General Stated Complaint: surgery not doing welll Time Seen by Provider: 09/02/16 16:59 Source of Information: Reports: Patient History Limitations: Reports: No limitations - History of Present Illness INITIAL COMMENTS - FREE TEXT/NARRATIVE: This patient underwent surgery this past Monday for 3 days ago. She was discharged home yesterday but noticed last night that her legs were swelling. Especially her left leg. She's wondering if she might have blood clots. She denies any pain in the legs. Lower Leg Pain Score (Numeric/FACES): 5 - Related Data Allergies Allergy/AdvReac Type Severity Reaction Status Date / Time nabumetone [From Relafen] Allergy Rash Verified 06/15/16 13:47 nickel Allergy Rash Verified 08/23/16 08:38 oxybutynin Allergy Rash Verified 06/15/16 13:47 Sulfa (Sulfonamide Allergy Rash Verified 06/15/16 13:47 Antibiotics) Home Meds: Home Meds Acetaminophen [Tylenol] 2 tab PO Q4H PRN 06/15/16 [History] Alum Hydrox/Mag Hydrox/Simeth [Maalox Advanced] 30 ml PO ASDIRECTED PRN [History] Bisacodyl [Dulcolax] 1 cap PO BID PRN 06/15/16 [History] Calcium Carbonate/Vitamin D3 [Calcium 600 + Vit D Tablet] 1 each PO DAILY [History] Magnesium Hydroxide [Milk of Magnesia] 30 ml PO DAILY PRN 06/15/16 [History] Vit A/Vit C/Vit E/Zinc/Copper [Preservision Areds Softgel] 1 tab PO BID [History] Amitriptyline [Elavil] 10 mg PO BEDTIME 06/16/16 [History] Aspirin 81 mg PO DAILY 06/16/16 [History] Ibuprofen 400 mg PO Q6H PRN 08/19/16 [History] Acetaminophen/oxyCODONE [Percocet 325-5 MG] 1 - 2 tab PO Q4H PRN #50 tablet [Rx] Docusate Sodium [Colace] 100 mg PO BID #100 cap 09/01/16 [Rx] Past Medical History HEENT History: Reports: Cataract, Impaired vision, Macular degeneration Other HEENT History: wears glasses Cardiovascular History: Reports: High cholesterol, SOB on exertion Respiratory History: Reports: Bronchitis, recurrent Gastrointestinal History: Reports: Chronic constipation, Colon polyp, GERD Genitourinary History: Reports: Urinary incontinence, UTI, recurrent TRAIN BRAKEMAN History: Reports: Musculoskeletal History: Reports: Back pain, chronic, Fracture, Osteoarthritis, Osteoporosis Neurological History: Reports: None Psychiatric History: Reports: Anxiety Endocrine/Metabolic History: Reports: Obesity/BMI 30+ Dermatologic History: Reports: Psoriasis - Infectious Disease History Infectious Disease History: Reports: Chicken pox, Measles, Mumps, Rubella - Past Surgical History HEENT Surgical History: Reports: None Cardiovascular Surgical History: Reports: None Respiratory Surgical History: Reports: None GI Surgical History: Reports: Cholecystectomy, Colonoscopy, Polypectomy Female Surgical History: Reports: None Endocrine Surgical History: Reports: None Neurological Surgical History: Reports: Laminectomy, Lumbar spine Musculoskeletal Surgical History: Reports: Arthroscopic procedure, Knee replacement Dermatological Surgical History: Reports: None Social & Family History - Family History Cardiac: Reports: CAD Musculoskeletal: Reports: Arthritis, RA Neurological: Reports: Alzheimers disease, Other (see below) Other Neurological Family History: brother had ALS - Tobacco Use Smoking Status *Q: Former Smoker Years of Tobacco use: 50 Packs/Tins Daily: 0.5 Used Tobacco, but Quit: Yes Month Tobacco Last Used: april Second Hand Smoke Exposure: No - Caffeine Use Caffeine Use: Reports: Coffee - Alcohol Use Days Per Week of Alcohol Use: 1 Number of Drinks Per Day: 1 Total Drinks Per Week: 1 - Recreational Drug Use Recreational Drug Use: No ED ROS GENERAL - Review of Systems Review Of Systems: ROS reveals no pertinent complaints other than HPI. ED EXAM, GENERAL - Physical Exam Exam: See Below Exam Limited By: No limitations General Appearance: alert, obese, other (She's wearing a abdominal binder/back brace) Respiratory/Chest: lungs clear Cardiovascular: regular rate, rhythm Extremities: other (There does appear to be some mild swelling to the right calf and thigh. There is greater swelling of the left leg and the circumference of the calf appears to be about 1 or 1-1/2 cm larger than on the right. The muscles or tenths. Color however is normal and there is no evidence of any kind of tenderness.) Neurological: alert, oriented, no motor/sensory deficits Course - Vital Signs Last Recorded V/S: Last Vital Signs Temp 36.9 C 09/02/16 16:41 Pulse 77 09/02/16 16:41 Resp 18 09/02/16 16:41 BP 137/56 L 09/02/16 16:41 Pulse Ox 98 09/02/16 16:41 - Orders/Labs/Meds Orders: Active Orders 24 hr Category Date Time Status VL Duplex Lwr Ext Veins Comp [US] Stat Exams 09/02/16 17:13 Ordered Labs: Laboratory Tests 09/02/16 09/02/16 09/02/16 Range/Units 17:25 17:25 17:25 WBC 10.0 (4.5-11.0) K/uL RBC 3.98 (3.30-5.50) M/uL Hgb 11.8 L (12.0-15.0) g/dL Hct 37.0 (36.0-48.0) % MCV 93 (80-98) fL MCH 30 (27-31) pg MCHC 32 (32-36) % Plt Count 190 (150-400) K/uL Neut % (Auto) 76 H (36-66) % Lymph % (Auto) 13 L (24-44) % [place] % (Auto) 10 H (2-6) % Eos % (Auto) 1 L (2-4) % Baso % (Auto) 1 (0-1) % PT 9.5 (9.5-12.0) sec INR 0.90 (0.80-1.20) APTT 22.9 L (27.0-36.0) sec Sodium 145 (140-148) mmol/L Potassium 4.3 (3.6-5.2) mmol/L Chloride 107 (100-108) mmol/L Carbon Dioxide 30 (21-32) mmol/L Anion Gap 7.8 (5.0-14.0) mmol/L BUN 17 (7-18) mg/dL Creatinine 0.7 (0.6-1.0) mg/dL Est Cr Clr Drug Dosing 59.21 mL/min Estimated GFR (MDRD) > 60 (>60) Glucose 104 (74-106) mg/dL Calcium 8.5 (8.5-10.1) mg/dL Total Bilirubin 0.5 (0.2-1.0) mg/dL AST 29 (15-37) U/L ALT 26 (12-78) U/L Alkaline Phosphatase 63 (46-116) U/L Total Protein 7.1 (6.4-8.2) g/dL Albumin 2.9 L (3.4-5.0) g/dL Globulin 4.2 H (2.3-3.5) g/dL Albumin/Globulin Ratio 0.7 L (1.2-2.2) - Re-Assessments/Exams Free Text/Narrative Re-Assessment/Exam: 09/02/16 18:30 Venous ultrasound bilateral lower extremities shows no evidence of any blood clots Free Text/Narrative Re-Assessment/Exam: 09/02/16 18:31 labs are unremarkable. Departure - Departure Time of Disposition: 18:31 Disposition: Home, Self-Care 01 Condition: fair Clinical Impression: Localized swelling of both lower legs Forms: ED Department Discharge Additional Instructions: There is no evidence of blood clot in your legs. The best thing is to rest as much as you can with your legs elevated up higher than your heart. This will relieve the swelling quickly. The worst thing is to sit in a chair for long periods of time with her legs hanging down. See your Dr. if you're not better in 2 or 3 days or return to the ER at any time - My Orders Last 24 Hours: My Active Orders 09/02/16 17:13 VL Duplex Lwr Ext Veins Comp [US] Stat - Assessment/Plan Last 24 Hours: My Active Orders 09/02/16 17:13 VL Duplex Lwr Ext Veins Comp [US] Stat
[2016-09-02 18:37] VITALS: BP 132/67
== END 2016-09-02 18:59 | disposition home or self-care (01) ==
LOC: JP.ED 16:04
DX: R22.43 Localized swelling, mass and lump, lower limb, bilateral (principal); E78.00 Pure hypercholesterolemia, unspecified; K21.9 Gastro-esophageal reflux disease without esophagitis; E66.9 Obesity, unspecified; Z68.44 Body mass index [BMI] 60.0-69.9, adult; Z79.82 Long term (current) use of aspirin; Z79.899 Other long term (current) drug therapy; Z88.2 Allergy status to sulfonamides; Z88.8 Allergy status to other drugs, medicaments and biological substances; Z90.49 Acquired absence of other specified parts of digestive tract; Z96.659 Presence of unspecified artificial knee joint; Z98.890 Other specified postprocedural states; Z87.891 Personal history of nicotine dependence
CPT/HCPCS: 36415; 80053; 85025; 85610; 85730; 93970; 99282; 99284-25

== ENCOUNTER 2024-01-21 10:08 | Emergency (ER) | payer MEDICAID ==
[2024-01-21 10:29] LABS: BASOPHILS ABSOLUTE AUTO 0.04 K/uL (0.00-0.10); BASOPHILS PERCENT AUTO 0.4 % (0.1-1.3); EOSINOPHILS ABSOLUTE AUTO 0.15 K/uL (0.00-0.40); EOSINOPHILS PERCENT AUTO 1.3 % (0.0-5.4); HEMATOCRIT 38.6 % (34.3-46.0); IMMATURE GRAN ABSOLUTE AUTO 0.05 K/uL (0.00-0.23); IMMATURE GRAN PERCENT AUTO 0.4 % (0.0-0.7); LYMPHOCYTES ABSOLUTE AUTO 0.84 K/uL (0.8-3.3); LYMPHOCYTES PERCENT AUTO 7.4 % (11.4-47.7); MEAN CORPUSCULAR HEMOGLOBIN 30.6 pg (31.6-35.5); MEAN CORPUSCULAR HGB CONC 33.7 g/dL (31.6-35.5); MEAN CORPUSCULAR VOLUME 90.8 fL (81.4-99.0); MONOCYTES ABSOLUTE AUTO 0.65 K/uL (0.20-0.90); MONOCYTES PERCENT AUTO 5.7 % (3.3-12.6); NEUTROPHILS ABSOLUTE AUTO 9.68 K/uL (1.0-7.6); NEUTROPHILS PERCENT AUTO 84.8 % (40.0-78.1); PLATELET COUNT,PLT 181 K/uL (130-375); RED BLOOD CELL COUNT 4.25 M/uL (3.77-5.24); WHITE BLOOD CELL COUNT,WBC 11.4 K/uL (3.2-11.0)
[2024-01-21 10:45] LABS: PROTHROMBIN TIME 9.8 sec (9.2-10.6)
[2024-01-21 10:49] LABS: A/G RATIO 0.7 (1.2-2.2); ALANINE AMINOTRANSFERASE,ALT 12 U/L (12-78); ALBUMIN 3.4 g/dL (3.4-5.0); ALKALINE PHOSPHATASE 101 U/L (46-116); ASPARTATE AMNIOTRANSFERASE,AST 20 U/L (15-37); BILIRUBIN TOTAL 0.7 mg/dL (0.2-1.0); BLOOD UREA NITROGEN,BUN 27 mg/dL (7-18); CARBON DIOXIDE,CO2 29 mmol/L (21-32); CHLORIDE,CL 100 mmol/L (100-108); CREATININE 1.2 mg/dL (0.6-1.0); ESTIMATED GFR 46 mL/min (>60); GLUCOSE RANDOM 123 mg/dL (74-106); POTASSIUM,K 3.9 mmol/L (3.6-5.2); SODIUM,NA 139 mmol/L (140-148)
[2024-01-21 10:51] LABS: ANION GAP 13.9 mmol/L (5.0-14.0)
[2024-01-21 15:07] LABS: APPEARANCE,URINE CLOUDY (CLEAR); BILIRUBIN,URINE NEGATIVE (NEGATIVE); COLOR,URINE YELLOW (YELLOW); GLUCOSE,URINE NEGATIVE (NEGATIVE); KETONES,URINE NEGATIVE (NEGATIVE); LEUKOCYTE ESTERASE,URINE NEGATIVE (NEGATIVE); NITRITE,URINE POSITIVE (NEGATIVE); OCCULT BLOOD,URINE TRACE-INTACT (NEGATIVE); PROTEIN,URINE NEGATIVE (NEGATIVE); UROBILINOGEN,URINE 0.2 EU/dL (0.2-1.0)
[2024-01-21 15:15] LABS: AMORPHOUS SEDIMENT,URINE NOT SEEN; BACTERIA,URINE MANY; EPITHELIAL CELLS,URINE RARE; MUCUS,URINE NOT SEEN; RBC,URINE 0-5 (0-5)
[2024-01-21] MEDS: HYDROmorphone 0.5 MG/0.5 ML Syringe IVPUSH ONE (17:04)
[2024-01-21 17:10] VITALS: BP 121/46; PULSE 82
== END 2024-01-21 17:23 ==
LOC: JP.ED 10:08
DX: S72.002A Fracture of unspecified part of neck of left femur, initial encounter for closed fracture (principal); E78.00 Pure hypercholesterolemia, unspecified; Z79.82 Long term (current) use of aspirin; Z79.899 Other long term (current) drug therapy; Z88.8 Allergy status to other drugs, medicaments and biological substances; Z88.2 Allergy status to sulfonamides; Z91.048 Other nonmedicinal substance allergy status; W19.XXXA Unspecified fall, initial encounter; Y92.129 Unspecified place in nursing home as the place of occurrence of the external cause
CPT/HCPCS: 36415; 51702; 71045; 73502; 80053; 81001; 85025; 85610; 86850; 86900; 86901; 87086; 87088; 87186; 93005; 96374; 99285; J1170; 93010; 99283